=== PATIENT | male | born 1990 | race Caucasian/White ===

== ENCOUNTER 2020-06-14 10:17 | Emergency (ER) | payer OTHER ==
[~2020-06-14 10:17] MED LIST: BACTRIM DS TAB1 EACH PO; BACTROBAN CREAM15 GM TOP; HYDROCODON-ACE1 EAC4 PO; KEFLEX CAP 500500 MG PO; NORCO 7.5-3251 EACH PO
[2020-06-14 11:22] LABS: HEMOGLOBIN 15.2 gm/dl (14.0-17.5); RED BLOOD COUNT 5.67 M/UL (4.20-5.50); WHITE BLOOD COUNT 5.9 K/UL (4.5-11.0)
[2020-06-14 11:47] LABS: BUN/CREATININE RATIO 14 (0-10)
[2020-06-14] MEDS ORDERED: TORADOL 10 MG T10 MG PO (12:55)
== END 2020-06-14 13:03 | disposition home or self-care (01) ==
LOC: ER1 10:17
PROVIDERS: Student in an Organized Health Care Education/Training Program
DX: R10.9 Unspecified abdominal pain (principal); Z79.899 Other long term (current) drug therapy; Z90.89 Acquired absence of other organs
CPT/HCPCS: 80053; 81001; 83690; 85025; 96365; 96374; 99284; J1885

== ENCOUNTER 2021-02-15 15:31 | Emergency (ER) | payer OTHER ==
[~2021-02-15] VITALS: Ht 182.9 cm; Wt 108.9 kg
[~2021-02-15 15:31] MED LIST changes: +TORADOL 10 MG T10 MG PO
[2021-02-15 17:45] LABS: HEMOGLOBIN 16.8 gm/dl (14.0-17.5); RED BLOOD COUNT 6.59 M/UL (4.20-5.50); WHITE BLOOD COUNT 5.2 K/UL (4.5-11.0)
[2021-02-15 18:03] LABS: BUN/CREATININE RATIO 14 (0-10)
[2021-02-15] MEDS ORDERED: ZOFRAN ODT 4 MG4 MG PO (19:09)
[2021-02-15] MEDS ORDERED: PROVENTIL HFA6.7 GM INH (19:09)
[2021-02-15] MEDS ORDERED: LODINE CAP 300300 MG PO (19:09)
== END 2021-02-15 21:27 | disposition home or self-care (01) ==
LOC: ER1 15:31
PROVIDERS: Physician Assistant
DX: U07.1 COVID-19 (principal); Z23 Encounter for immunization
CPT/HCPCS: 71045; 80053; 85025; 96374; 96375; 96376; 99285; J1885; J2405; J2765; M0245

== ENCOUNTER 2021-05-12 18:10 | Emergency (ER) | payer OTHER ==
[~2021-05-12 18:10] MED LIST changes: +LODINE CAP 300300 MG PO; +PROVENTIL HFA6.7 GM INH; +ZOFRAN ODT 4 MG4 MG PO
[2021-05-12 19:23] LABS: HEMOGLOBIN 14.8 gm/dl (14.0-17.5); RED BLOOD COUNT 5.82 M/UL (4.20-5.50); WHITE BLOOD COUNT 8.2 K/UL (4.5-11.0)
[2021-05-12 19:46] LABS: BUN/CREATININE RATIO 24 (0-10)
== END 2021-05-12 21:03 | disposition home or self-care (01) ==
LOC: ER1 18:10
PROVIDERS: Physician Assistant
DX: R07.89 Other chest pain (principal); F17.220 Nicotine dependence, chewing tobacco, uncomplicated
CPT/HCPCS: 71045; 80053; 82550; 82553; 83690; 83735; 84439; 84443; 84484; 85025; 93005; 99285